=== PATIENT | male | born 1985 | race African-American/Black ===

== ENCOUNTER 2024-07-19 10:22 | Emergency (ER) | payer BC, OTHER ==
[~2024-07-19] VITALS: Ht 185.4 cm; Wt 95.3 kg
[2024-07-19 10:36] VITALS: BP 158/96; TEMP 98.3; O2SAT 100
[2024-07-19] MEDS ORDERED: PENI500T PO (10:40)
[2024-07-19] MEDS ORDERED: NAPR-1164 PO (10:40)
== END 2024-07-19 10:47 | disposition home or self-care (01) ==
LOC: ER 10:28
DX: K04.7 Periapical abscess without sinus (principal); K08.89 Other specified disorders of teeth and supporting structures; Z60.2 Problems related to living alone

== ENCOUNTER 2024-10-27 10:23 | Emergency (ER) | payer BC, OTHER ==
[~2024-10-27] VITALS: Ht 182.9 cm; Wt 101.6 kg
[~2024-10-27 10:23] MED LIST: NAPR-1164 PO; PENI500T PO
[2024-10-27] MEDS ORDERED: CEFTRIAXONE 1GM BAG (ER ONLY) 50 ML IV ONE (11:10)
[2024-10-27] MEDS: IV NS 0.9% 1,000 ML BAG IV ONE (11:17)
[2024-10-27] MEDS: CEFTRIAXONE 1 G in IV D5W 50 ML IV ONE (11:18)
[2024-10-27 11:36] LABS: BASOPHILS % (AUTO) 0.4 % (0.0-2.0); EOSINOPHILS # (AUTO) 0.4 K/uL (0.0-0.7); EOSINOPHILS % (AUTO) 4.5 % (0.0-6.0); HEMATOCRIT 43 % (39-51); HEMOGLOBIN 14.6 g/dL (13.5-17.5); LYMPHOCYTES # (AUTO) 0.6 K/uL (0.8-4.8); LYMPHOCYTES % (AUTO) 8.2 % (20.0-44.0); MEAN CORPUSCULAR HEMOGLOBIN 29 PG (26.0-33.0); MEAN CORPUSCULAR HGB CONC 34 g/dl (31.0-36.0); MEAN CORPUSCULAR VOLUME 86 fL (80-96); MONOCYTES # (AUTO) 0.7 K/uL (0.1-1.30); MONOCYTES % (AUTO) 8.6 % (2.0-12.0); NEUTROPHILS # (AUTO) 6.1 K/uL (1.8-8.9); NEUTROPHILS % (AUTO) 78.3 % (43.0-81.0); PLATELET COUNT (AUTO) 258 K/uL (150-450); RED BLOOD CELL COUNT(AUTO) 5.02 MIL/uL (4.5-6.0); RED CELL DISTRIBUTION WIDTH 13.8 % (11.5-15.0); WHITE BLOOD COUNT (AUTO) 7.8 K/uL (4.3-11.0)
[2024-10-27 11:46] LABS: CALCIUM, SERUM 9.6 mg/dL (8.5-10.1); CREATININE 0.9 mg/dL (0.6-1.3); POTASSIUM 3.9 mmol/L (3.5-5.1)
[2024-10-27 11:50] LABS: LACTIC ACID 1.8 mmol/L (0.4-2.0)
[2024-10-27 11:52] LABS: BILIRUBIN,DIRECT 0.2 mg/dL (0.0-0.2); BILIRUBIN,TOTAL 0.5 mg/dL (0.2-1.0); TOTAL PROTEIN, SERUM 7.8 g/dL (6.4-8.2)
[2024-10-27 11:56] LABS: PARTIAL THROMBOPLASTIN TIME 33.3 SEC (24.3-34.3); PROTHROMBIN TIME 10.6 SECS (9.2-11.1)
[2024-10-27 13:12] LABS: APPEARANCE,URINE CLEAR (CLEAR); BILIRUBIN,URINE NEGATIVE (NEGATIVE); BLOOD, URINE TRACE-INTA Ery/uL (NEGATIVE); COLOR,URINE YELLOW (YELLOW); KETONES,URINE TRACE mg/dL (NEGATIVE); LEUKOCYTE ESTERASE ,URINE NEGATIVE (NEGATIVE); NITRITE, URINE NEGATIVE (NEGATIVE); PROTEIN,URINE TRACE mg/dl (NEGATIVE); UGLUCOSE NEGATIVE (NEGATIVE); UROBILINOGEN,URINE 0.2 EU/dL (0.2)
[2024-10-27 13:59] LABS: ADD URINE CULTURE NO; BACTERIA,URINE Few /HPF (None Seen); SQUAMOUS EPITHELIAL CELL,UR Few /HPF (None Seen); WBC,URINE 0-2 /HPF (0-3)
[2024-10-27] MEDS ORDERED: IBUPROFEN 600 MG TABLET PO ONE (14:30)
[2024-10-27 14:35] VITALS: BP 124/72; TEMP 98.4; O2SAT 97
[2024-10-28] MEDS ORDERED: AMOX-430 PO (12:16)
== END 2024-10-27 14:38 | disposition home or self-care (01) ==
LOC: ER 10:28
DX: J06.9 Acute upper respiratory infection, unspecified (principal); R07.9 Chest pain, unspecified; Z20.822 Contact with and (suspected) exposure to COVID-19
CPT/HCPCS: 99291; 96365; 71045; 87426; 93005; 87804 ×2; 84145; 85025; 80048; 87040 ×2; 87086; 83605; 80076; 81001; 36415; 85730; J0696 ×2; J7060; J7030; J7040